=== PATIENT | female | born 1940 | race Hispanic/Latino ===

== ENCOUNTER → 2018-05-20 | Outpatient (CLI) | payer MEDICARE, BC ==
[~2018-05-20] MED LIST: COMBIGAN EYE DRO5 ML OU; FEXOFENADINE H180 MG PO; GABAPENTIN300 MG PO; JENTADUETO 2.51 EAC2 PO; KOMBIGLYZE XR1 EACH PO; LOSARTAN POTASS25 MG PO; LOVASTATIN40 MG PO; METFORMIN HCL500 M3; MONTELUKAST SOD10 MG PO; MULTI-VITAMIN1 EACH PO; ROPINIROLE HC0.25 MG PO; TIZANIDINE HCL4 MG PO; TORSEMIDE20 MG PO; TRAVATAN Z5 ML OP; ULTRAM50 MG PO; VIT B12 10001000 MCG GT; Z.0.ACTOS15 MG PO; Z.0.AMLODIPINE BESY1 PO; Z.0.NIACIN500 MG PO
--- NOTE | 2018-05-20 13:50 | Diagnostic Imaging Report ---
EXAMINATION: MRI of the brain without contrast. HISTORY: Mild cognitive impairment. COMPARISON: None. TECHNIQUE: Sagittal T2; axial DWI, T2, FLAIR, T1-IR, T2 gradient echo; coronal FLAIR. IMAGE QUALITY: Adequate. FINDINGS: Structural lesion: No intra- or extra-axial mass or hematoma. Ventricles: No hydrocephalus. Cat matter signal intensity: Cortex: Unremarkable. Basal ganglia: Unremarkable. Thalami: Unremarkable. White matter signal intensity: Cerebral: Few scattered and mildly confluent periventricular white matter T2 and FLAIR hyperintense foci, most likely nonspecific chronic microvascular ischemic changes. Brainstem: Unremarkable. Mamillary bodies/fornices and hippocampi: No atrophy or abnormal signal. Microhemorrhages: None. Atrophy: Global: Symmetric and age-appropriate. Focal: Mild bilateral parietal cortical disproportionate volume loss, otherwise no disproportionate lobar, hippocampal, mesencephalic, pontine, or cerebellar atrophy. Vessels: Expected flow voids present in the major arteries and dural sinuses. Sella: Unremarkable. OTHER: Subarachnoid spaces: No abnormal signal intensity. Foramen magnum: Unremarkable. Skull: Unremarkable. Paranasal / mastoid sinuses: No significant inflammatory disease. IMPRESSION: 1. Mild chronic microvascular ischemic changes. 2. Slightly disproportionate bilateral parietal cortical volume loss, otherwise no disproportionate lobar atrophy. Signed by: Dr. Tonya Webster M.D. on 05/20/2018 1:47 PM
== END ==
LOC: MRI 10:21
PROVIDERS: ATTEND Family Medicine
DX: G31.84 Mild cognitive impairment of uncertain or unknown etiology (principal)
CPT/HCPCS: 70551

== ENCOUNTER → 2019-09-21 | Outpatient (CLI) | payer MEDICARE, BC ==
--- NOTE | 2019-09-21 17:31 | Diagnostic Imaging Report ---
Shoulder 2 views CPT code: 92458 Indication:Fall, Pain Comparison: None. Findings: 2 views of the left shoulder were obtained. Bones are normally aligned. No fractures are identified. No focal osseous lesions. Visualized chest is unremarkable. IMPRESSION: No acute findings noted. Signed by: Dr. Mallory Joya MD on 09/21/2019 5:28 PM
--- NOTE | 2019-09-21 17:39 | Diagnostic Imaging Report ---
CT BRAIN WO HISTORY: Fall, headache COMPARISON: MRI of the brain 05/20/2018 Technique: Noncontrast axial scans were obtained from skull base to the vertex. Coronal and sagittal reconstructions obtained from the axial data. One or more of the following dose reduction techniques were used: Automated exposure control, adjustment of the mA and/or kV according to patient size, and/or utilization of iterative reconstruction technique. DISCUSSION: Scalp/Skull: Unremarkable. Brain sulci: Mildly prominent. Ventricles: Compensatory dilatation. Extra-axial spaces: No masses or fluid collections. Carotid and vertebral artery calcifications are present. Parenchyma: Mild bilateral deep white matter hypodensity is likely chronic microvascular ischemic change. Otherwise, no masses, hemorrhage, or large vascular territory acute infarct. Dural sinuses: No abnormal densities. Sellar/Suprasellar region: Intact. Skull base: Intact. Incidental findings: None. IMPRESSION: 1. No acute intracranial abnormalities. 2. Mild supratentorial chronic microvascular ischemic change. Mild generalized cerebral volume loss. Signed by: Dr. uGstavo Berrios M.D. on 09/21/2019 5:36 PM
--- NOTE | 2019-09-21 17:39 | Diagnostic Imaging Report ---
Hand Complete CPT code: 46727 Indication:Fall Technique: Three views of the left hand obtained Comparison: None. Findings: Distal radius and ulna appear intact. Carpal bones appear generally well aligned. There are mildly comminuted fractures of the proximal phalanges of the fourth and fifth digits at the bases. One fracture plane in the proximal phalanx of the fifth digit extends to the articular surface. An intra-articular extension of a fracture plane in the fourth proximal phalanx fracture cannot be identified on these images. There are no dislocations of the MCPs. Digits 1, 2, and 3 are intact. There is diffuse soft tissue swelling surrounding the fourth and fifth digits at the MCPs. No radiopaque foreign bodies in the soft tissues. IMPRESSION: Mildly comminuted fracture of the base of proximal phalanx of the fifth digit with intra-articular extension. Mildly comminuted fracture of the base of the proximal phalanx of the fourth digit. Signed by: Dr. Mallory Joya MD on 09/21/2019 5:36 PM
== END ==
LOC: CT 16:11
PROVIDERS: ATTEND Family Medicine
DX: G31.84 Mild cognitive impairment of uncertain or unknown etiology (principal); M79.642 Pain in left hand; M25.512 Pain in left shoulder
CPT/HCPCS: 70450